=== PATIENT | female | born 1970 | race Caucasian/White ===

== ENCOUNTER 2017-10-29 16:50 | Emergency (ER) | payer OTHER ==
--- NOTE | 2017-10-29 18:40 | ED ---
Progress - Progress Note Progress Note: Greeting note: Since Saturday dysuria, urgency, freuqency. Reporting fast heart rate wit ambulation measured on her apple watch. R flank pain since yesterday Flu 3 weeks ago. Took tamiflu.
[2017-10-29 19:03] LABS: ABS Basophils 0.1 10^3/ul (0-0.2); ABS Eosinophils 0.4 10^3/ul (0-0.6); ABS Monocytes 0.9 10^3/ul (0-0.8); ABS Neutrophils 6.2 10^3/ul (1.5-7.7); ABS Nucleated RBC 0 10^3/ul; Eosinophil % 3.7 % (0-6); Hematocrit 43 % (35-47); Hemoglobin 14.6 g/dl (12.0-16.0); Lymphocyte % 21.2 % (25-47); Mean Corpuscular HGB Conc 34 g/dl (31-36); Mean Corpuscular Hemoglobin 30 pg (27-31); Mean Corpuscular Volume 87 fL (80-97); Mean Platelet Volume 8 um3 (7.4-10.4); Nucleated Red Blood Cells % 0; Platelet Count 366 10^3/ul (150-450); Red Blood Count 4.95 10^6/ul (4.0-5.4); Red Cell Distribution Width 13 % (10.5-15); White Blood Count 9.6 10^3/ul (3.5-10.8)
[2017-10-29 19:07] LABS: Urine Appearance Cloudy; Urine Blood Negative (Negative); Urine Color Yellow; Urine Ketones Negative (Negative); Urine Protein Negative (Negative); Urine Specific Gravity 1.009 (1.010-1.030); Urine Urobilinogen Negative (Negative)
[2017-10-29 19:22] LABS: EGFR Non-African American 76.6 (>60)
[2017-10-29] MEDS ORDERED: Ketorolac INJ* 30 MG/ML 1 ML VIAL IV ONE (21:27)
[2017-10-29] MEDS ORDERED: NS 0.9% 1000 ML* 1,000 ML IV ONE (21:27)
[2017-10-29] MEDS ORDERED: Ondansetron INJ* 2 MG/ML VIAL IV ONE (21:27)
--- NOTE | 2017-10-29 21:56 | ED ---
GI/ HPI - HPI Summary HPI Summary: Pt presents with right flank pain. Pt states she has been recently treated with two courses of oral antibiotics for UTI by her PCP. Pt states today she began to have intermittent severe right flank pain with radiation to her buttocks and groin. Pt states she has also had associated nausea. - History of Current Complaint Chief Complaint: EDFlankPain Time Seen by Provider: 10/29/17 21:07 Stated Complaint: KIDNEY PAIN Hx Obtained From: Patient Onset/Duration: Started Hours Ago Timing: Intermittent Severity: Moderate Current Severity: Mild Pain Intensity: 3 Location of Pain: Flank Pain Characteristics: Sharp Pain Radiates to: Inguinal Associated Signs and Symptoms: Positive: Nausea, Flank Pain. Negative: Dizziness, Weakness, Diarrhea, Diaphoresis, Hematuria, Dysuria, Abdominal Pain Additional Signs & Symptoms: Negative: Vaginal Bleeding, Vaginal Discharge, Recent Antibiotics, Pelvic Infammatory Disease Aggravating Factor(s): Nothing Alleviating Factor(s): Nothing - Allergy/Home Medications Allergies/Adverse Reactions: Allergies Allergy/AdvReac Type Severity Reaction Status Date / Time No Known Allergies Allergy Verified 04/26/14 15:21 PMH/Surg Hx/FS Hx/Imm Hx Endocrine/Hematology History: Reports: Hx Diabetes Cardiovascular History: Denies: Hx Congestive Heart Failure, Hx Hypertension History: Reports: Hx Kidney Infection, Other Problems/Disorders - OVARIAN CYSTS - Cancer History Hx Chemotherapy: No Hx Radiation Therapy: No Infectious Disease History: No Infectious Disease History: Denies: Traveled Outside the [place] in Last 30 Days - Family History Known Family History: Positive: Cardiac Disease, Hypertension, Diabetes Family History: non contributory - Social History Alcohol Use: Occasionally Substance Use Type: Reports: None Hx Tobacco Use: Yes - former smoker, now chewing nicotine gum Smoking Status (MU): Former Smoker Review of Systems Positive: Fatigue. Negative: Fever, Chills Respiratory: Negative Gastrointestinal: Negative Positive: Nausea. Negative: Abdominal Pain Negative: dysuria, discharge, urgency All Other Systems Reviewed And Are Negative: Yes Physical Exam Triage Information Reviewed: Yes Vital Signs On Initial Exam: Initial Vitals Temp Pulse Resp BP Pulse Ox 37.5 C 85 20 139/86 96 10/29/17 16:58 10/29/17 16:58 10/29/17 16:58 10/29/17 16:58 10/29/17 16:58 Vital Signs Reviewed: Yes Appearance: Positive: Well-Appearing, No Pain Distress Skin: Positive: Warm, Skin Color Reflects Adequate Perfusion, Dry Eyes: Positive: Normal ENT: Positive: Normal ENT inspection Neck: Positive: No Lymphadenopathy Respiratory/Lung Sounds: Positive: Clear to Auscultation, Breath Sounds Present Cardiovascular: Positive: Normal, RRR, Pulses are Symmetrical in both Upper and Lower Extremities Abdomen Description: Positive: Nontender, No Organomegaly, Soft, Other: - negative Watters's sign. Negative: CVA Tenderness (L), Guarding, McBurney's Point Tenderness Bowel Sounds: Positive: Present Musculoskeletal: Positive: Normal Neurological: Positive: Normal, Alert, Oriented to Person Place, Time Psychiatric: Positive: Normal Diagnostics - Vital Signs Vital Signs Temp Pulse Resp BP Pulse Ox 10/29/17 18:58 36.6 C 83 20 141/77 97 10/29/17 16:58 37.5 C 85 20 139/86 96 - Laboratory Lab Results: Lab Results 10/29/17 10/29/17 10/29/17 Range/Units 18:45 18:45 18:45 WBC 9.6 (3.5-10.8) 10^3/ul RBC 4.95 (4.0-5.4) 10^6/ul Hgb 14.6 (12.0-16.0) g/dl Hct 43 (35-47) % MCV 87 (80-97) fL MCH 30 (27-31) pg MCHC 34 (31-36) g/dl RDW 13 (10.5-15) % Plt Count 366 (150-450) 10^3/ul MPV 8 (7.4-10.4) um3 Neut % (Auto) 64.3 (38-83) % Lymph % (Auto) 21.2 L (25-47) % Park % (Auto) 9.9 H (1-9) % Eos % (Auto) 3.7 (0-6) % Baso % (Auto) 0.9 (0-2) % Absolute Neuts (auto) 6.2 (1.5-7.7) 10^3/ul Absolute Lymphs (auto) 2.0 (1.0-4.8) 10^3/ul Absolute Monos (auto) 0.9 H (0-0.8) 10^3/ul Absolute Eos (auto) 0.4 (0-0.6) 10^3/ul Absolute Basos (auto) 0.1 (0-0.2) 10^3/ul Absolute Nucleated RBC 0 10^3/ul Nucleated RBC % 0 Sodium 135 (133-145) mmol/L Potassium 4.2 (3.5-5.0) mmol/L Chloride 103 (101-111) mmol/L Carbon Dioxide 25 (22-32) mmol/L Anion Gap 7 (2-11) mmol/L BUN 15 (6-24) mg/dL Creatinine 0.80 (0.51-0.95) mg/dL Est GFR ( Amer) 98.5 (>60) Est GFR (Non-Af Amer) 76.6 (>60) BUN/Creatinine Ratio 18.8 (8-20) Glucose 106 H (70-100) mg/dL Lactic Acid 0.6 (0.5-2.0) mmol/L Calcium 9.3 (8.6-10.3) mg/dL Total Bilirubin 0.30 (0.2-1.0) mg/dL AST 18 (13-39) U/L ALT 24 (7-52) U/L Alkaline Phosphatase 60 (34-104) U/L C-Reactive Protein 8.60 H (< 5.00) mg/L Total Protein 7.0 (6.4-8.9) g/dL Albumin 4.3 (3.2-5.2) g/dL Globulin 2.7 (2-4) g/dL Albumin/Globulin Ratio 1.6 (1-3) Urine Color Urine Appearance Urine pH (5-9) Ur Specific Commodore (1.010-1.030) Urine Protein (Negative) Urine Ketones (Negative) Urine Blood (Negative) Urine Nitrate (Negative) Urine Bilirubin (Negative) Urine Urobilinogen (Negative) Ur Leukocyte Esterase (Negative) Urine Glucose (Negative) 10/29/17 Range/Units 18:50 WBC (3.5-10.8) 10^3/ul RBC (4.0-5.4) 10^6/ul Hgb (12.0-16.0) g/dl Hct (35-47) % MCV (80-97) fL MCH (27-31) pg MCHC (31-36) g/dl RDW (10.5-15) % Plt Count (150-450) 10^3/ul MPV (7.4-10.4) um3 Neut % (Auto) (38-83) % Lymph % (Auto) (25-47) % Park % (Auto) (1-9) % Eos % (Auto) (0-6) % Baso % (Auto) (0-2) % Absolute Neuts (auto) (1.5-7.7) 10^3/ul Absolute Lymphs (auto) (1.0-4.8) 10^3/ul Absolute Monos (auto) (0-0.8) 10^3/ul Absolute Eos (auto) (0-0.6) 10^3/ul Absolute Basos (auto) (0-0.2) 10^3/ul Absolute Nucleated RBC 10^3/ul Nucleated RBC % Sodium (133-145) mmol/L Potassium (3.5-5.0) mmol/L Chloride (101-111) mmol/L Carbon Dioxide (22-32) mmol/L Anion Gap (2-11) mmol/L BUN (6-24) mg/dL Creatinine (0.51-0.95) mg/dL Est GFR ( Amer) (>60) Est GFR (Non-Af Amer) (>60) BUN/Creatinine Ratio (8-20) Glucose (70-100) mg/dL Lactic Acid (0.5-2.0) mmol/L Calcium (8.6-10.3) mg/dL Total Bilirubin (0.2-1.0) mg/dL AST (13-39) U/L ALT (7-52) U/L Alkaline Phosphatase (34-104) U/L C-Reactive Protein (< 5.00) mg/L Total Protein (6.4-8.9) g/dL Albumin (3.2-5.2) g/dL Globulin (2-4) g/dL Albumin/Globulin Ratio (1-3) Urine Color Yellow Urine Appearance Cloudy Urine pH 5.0 (5-9) Ur Specific Commodore 1.009 L (1.010-1.030) Urine Protein Negative (Negative) Urine Ketones Negative (Negative) Urine Blood Negative (Negative) Urine Nitrate Negative (Negative) Urine Bilirubin Negative (Negative) Urine Urobilinogen Negative (Negative) Ur Leukocyte Esterase Negative (Negative) Urine Glucose Negative (Negative) Result Diagrams: 10/29/17 18:45 10/29/17 18:45 Lab Statement: Any lab studies that have been ordered have been reviewed, and results considered in the medical decision making process. - CT No standard instances CT Interpretation: No Acute Changes CT Interpretation Completed By: ED Physician, Radiologist Re-Evaluation - Re-Evaluation First Eval Re-Evaluation Time: 22:31 Change: Improved Comment: Pt resting comfortably in bed. Pt flank pain and nausea resolved. Pt symptoms most consistent with pyelonephritis. GIGU Course/Dx - Course Course Of Treatment: Pt symptoms improved with IV analgesia. Pt will be given IV Ceftriaxone and started on oral Levaquin. Plan for f/u with her PCP in 2-3 days for repeat evaluation. - Diagnoses Differential Diagnoses - Female: Appendicitis, Cervicitis, Cystitis, Ovarian Cyst, Pyelonephritis, Renal Colic, Urinary Tract Infection, Vaginitis Provider Diagnoses: Pyelonephritis Discharge - Discharge Plan Condition: Improved Disposition: HOME Prescriptions: Ketorolac TAB * [Toradol TAB *] 10 mg PO Q6H #10 tab Levofloxacin TAB* [Levaquin TAB*] 750 mg PO DAILY #7 tab Ondansetron [Zofran 8 MG Odt] 8 mg PO Q6HR #8 tab Patient Education Materials: Kidney Infection (ED) Referrals: Blanca Garcias MD [Primary Care Provider] - 2 Days Additional Instructions: Please follow up with your PCP in 2-3 days for repeat evaluation and treatment. Please return to this Emergency Department if symptoms worsen or return.
--- NOTE | 2017-10-29 22:00 | RAD ---
Indication: Right flank pain. CT of the abdomen and pelvis was performed without oral or IV contrast administration. Coronal and sagittal reconstructed images were obtained. Lung bases demonstrate no pleural fluid, nodules or masses. Heart is of normal size without evidence of pericardial effusion. Liver is normal in size. No focal lesions or intrahepatic duct dilatation is noted. The gallbladder demonstrates no calcified gallstones. No pericholecystic fluid or wall thickening is noted. The pancreas demonstrates no mass or pancreatic duct dilatation. Common duct is not dilated. The spleen is normal in size. No adrenal lesions are noted. The kidneys demonstrate no hydronephrosis. No dilated loops of bowel are noted. Retroaortic left renal vein is noted. Aorta and inferior vena cava are unremarkable. No retroperitoneal adenopathy is noted. CT of the pelvis demonstrates normal appendix. Colon is filled with stool. No dilated loops of bowel are noted. The uterus demonstrates IUD in place. Ovaries are not enlarged. No pelvic adenopathy is noted. No hernias are noted. IMPRESSION: No evidence of obstructive uropathy is noted. Normal appendix.
[2017-10-29] MEDS: NS 0.9% 1000 ML* 2,000 ML IV ONE (22:02)
[2017-10-29] MEDS ORDERED: cefTRIAXone(*) 1 GM in NS 0.9% 50 ML* 50 ML IVPB ONE (22:17)
[2017-10-29 23:21] VITALS: BP 132/76
== END 2017-10-29 23:20 | disposition home or self-care (01) ==
LOC: ED 16:50
DX: N12 Tubulo-interstitial nephritis, not specified as acute or chronic (principal); Z87.440 Personal history of urinary (tract) infections; Z87.891 Personal history of nicotine dependence
CPT/HCPCS: 36415; 74176; 80053; 81003; 83605; 84702; 85025; 86140; 87040; 96361; 96365; 96375; 99283; J0696; J1885; J2405